=== PATIENT | male | born 1990 | race Hispanic/Latino ===

== ENCOUNTER 2025-01-05 11:36 | Emergency (ER) | payer SELFPAY ==
[~2025-01-05] VITALS: Ht 165.1 cm; Wt 124.7 kg
[2025-01-05] MEDS: ceFAZolin SODIUM 1 GM VIAL IVPB ONE (12:17)
[2025-01-05] MEDS: ketOROlac 15MG/ML VIAL (15MG/ML) IV ONE (12:19)
[2025-01-05] MEDS: teTANUS/diphthERIA TOXOID [ADULT] 0.5 ML VIAL IM ONE (12:20)
[2025-01-05] MEDS: LIDOCAINE HCL 1% 20 ML VIAL INJ ONE (12:21)
--- NOTE | 2025-01-05 12:30 | NUR ---
patient states that he had his left index finger crushed by a ("heavy" approximately 30lbs), barbeque lid, upon assessment, left index finger noted with a laceration to distally, scant bleeding noted. patient pain 8/10
--- NOTE | 2025-01-05 13:24 | NUR ---
Yariel MASCORRO in to suture laceration
--- NOTE | 2025-01-05 13:29 | HMCIMG ---
Exam Type: FINGER(S) 2+VWS LT Clinical Information: laceration to 2nd digit Comparison: None Findings and impression: Open fracture dislocation involving the distal tip of the distal phalanx of the second digit with volar tuft laceration with debris. No other abnormalities
[2025-01-05] MEDS ORDERED: KETO10TA2 PO (13:55)
[2025-01-05] MEDS ORDERED: AMOX1TAB16 PO (13:55)
--- NOTE | 2025-01-05 14:01 | ERN ---
General Chief Complaint: Laceration/Avulsion Stated Complaint: LAC\AVULSION OF LEFT 2ND DIGIT Time Seen by MD: 11:42 Time Seen by Midlevel: 11:42 Source: patient History of Present Illness Initial Comments Patient is a 34-year-old male with a past medical history of diabetes presenting to the emergency department for a laceration to his left 2nd digit. The patient states he was barbecuing when the barbecue accidentally closed on his finger. Allergies: Coded Allergies: No Known Drug Allergies (Unverified Allergy, Unknown, 01/05/25) Past Medical History Past Medical History: No Pertinent History Past Surgical History: None ROS Dictation CONSTITUTIONAL: Negative except for HPI HEAD/FACE: Negative except for HPI EENT: Negative except for HPI RESPIRATORY: Negative except for HPI GASTROINTESTINAL/ABDOMINAL: Negative except for HPI GENITOURINARY: Negative except for HPI MUSCULOSKELETAL: Negative except for HPI INTEGUMENTARY: Negative except for HPI NEUROLOGICAL/PSYCH: Negative except for HPI HEMATOLOGIC/LYMPHATIC: Negative except for HPI All Systems Negative, Except as noted above. 13 point review of systems assessed and all negative except for above. Physical Exam Physical Exam Dictation PHYSICAL EXAM: GENERAL: alert,, awake oriented x 3 HEENT: EOMI, Sclera non icteric, moist mucosa NECK: Supple, no JVD, trachea midline LUNGS: Clear breath sounds bilaterally. No wheezes HEART: Regular rate and rhythm. Normal S1 and S2, without murmurs ABD: Abdomen soft, nontender. Bowel sounds present EXT: No clubbing or cyanosis, SKIN: 2 cm linear laceration to the distal portion of the left 2nd digit, min imal active bleeding NEURO: Alert and oriented to person, follows commands MDM MDM: Differential diagnosis: Laceration, fracture, tendon laceration There are no social concerns with this patient. Prescription drug management Prescriptions will include: Augmentin Medical management and examination interpretation discussions were had by me with other qualified healthcare professionals as indicated for the patient's care. ED Course Orders Procedure Category Date Status Time Cefazolin Sodium 1 Gm PHA 01/05/25 Complete Vial (Ancef 1 Gm V 12:00 Tetanus,Diphtheria PHA 01/05/25 Complete Tox [Adult] (Diphther 12:00 Finger(S) 2+Vws Lt RAD 01/05/25 Resulted 11:58 Ketorolac PHA 01/05/25 Complete Tromethamine 15mg/Ml 12:00 Lidocaine Hcl 1% 20ml PHA 01/05/25 Complete Vial (Lidocaine Hc 12:00 Laceration Tray Set CPOE 01/05/25 Transmitted Up (Er) 11:58 Current Medications Medications (Trade) Dose Ordered Sig/Kofi Route PRN Reason Start Time Stop Time Status Last Admin Dose Admin Cefazolin Sodium (ANCEF 1 gm vial) 1 gm ONCE ONCE IVPB 01/05/25 12:00 01/05/25 12:07 DC 01/05/25 12:17 Ketorolac Tromethamine (toRADol) 15 mg ONCE ONCE IV 01/05/25 12:00 01/05/25 12:07 DC 01/05/25 12:19 Lidocaine HCl (Lidocaine HCl 1% 20ml Vial) ONCE ONCE INJ 01/05/25 12:00 01/05/25 12:07 DC 01/05/25 12:21 Tetanus/ Diphtheria Toxoids Adsorbed (DiphthERIA-teTANUS TOXOID [ADULT]/ DECAVAC) 0.5 ml ONCE ONCE IM 01/05/25 12:00 01/05/25 12:07 DC 01/05/25 12:20 Vital Signs Date Time Temp Pulse Resp B/P (MAP) Pulse Ox O2 Delivery O2 Flow Rate FiO2 01/05/25 13:00 98.1 90 18 134/79 100 Room Air* 0 21 01/05/25 12:00 97.9 64 18 135/80 99 Room Air* 0 21 01/05/25 11:42 98.2 86 16 123/92 0 01/05/25 11:42 98.2 86 16 123/92 96 Room Air* [address] [address] IMAGING REPORT Signed PATIENT: CHRIS GUTIÉRREZ MR#: [id number] : 1990 SEX: M AGE: 34 LOCATION: [facility] ORDER 1200 STATUS: REG ER REPORT#: [id number] SERVICE [id number] REASON: laceration to 2nd digit ORDERING PHYSICIAN: ZANE MARIN PROCEDURE: FINGER LT - FINGER(S) 2+VWS LT Exam Type: FINGER(S) 2+VWS LT Clinical Information: laceration to 2nd digit Comparison: None Findings and impression: Open fracture dislocation involving the distal tip of the distal phalanx of the second digit with volar tuft laceration with debris. No other abnormalities DICTATED BY: MOON GOULD MD DATE: 01/05/251324 ELECTRONICALLY SIGNED BY: MOON GOULD MD DATE: 01/05/251328 Procedure Dictation Procedure Name: Laceration Repair Indication: Reduce risk of infection Location: 2 cm linear laceration to the Palmar aspect of the left 2nd digit Pre-Procedure Diagnosis: Laceration Post-Procedure Diagnosis: Repaired Laceration Informed consent was obtained before procedure started. PROCEDURE: The appropriate timeout was taken. The area was prepped and draped in the usual sterile fashion. Local anesthesia was achieved using 2cc of Lidocaine 1% without epinephrine. The wound was copiously irrigated. 7 5-0 Ethilon simple interrupted sutures were placed. Estimated blood loss was less than 0.5 mL. A dressing was applied to the area and anticipatory guidance, as well as standard post-procedure care, was explained. Return precautions are given. The patient tolerated the procedure well without complications. Follow-up visit set for suture removal and evaluation of the laceration. DX & DISP Disposition: Discharge Departure Impression: Primary Impression: Open fracture of phalanx of digit of hand Condition: Stable Scripts Amoxicillin/Potassium Clav (Amox Tr-K Clv 875-125 mg Tab) 875 Mg-125 Mg Tablet 1 EACH PO BID for 7 Days, #14 TAB 0 Refills Prov: ZANE MARIN 01/05/25 Ketorolac Tromethamine (Ketorolac Tromethamine) 10 Mg Tablet 1 TAB PO TID for pain for 5 Days, #15 TAB 0 Refills Prov: ZANE MARIN 01/05/25 Additional Instructions: Your laceration was successfully repaired with seven sutures. These will need to be removed in 10 days. I have given you a prescription for Augmentin which should help prevent an infection. Your x-ray does reveal a small fracture of the distal aspect of the left 2nd digit. You will need to see an garnishment specialist for further evaluation. Referrals: SELF,REFERRAL (PCP) Time of Disposition: 13:54 I have reviewed the case, and I agree with, Diagnosis and Plan I performed the substantive portion of the visit. I have reviewed and personally made and approve the management plan that is documented in the note by myself or the ASHWINI. I acknowledge for responsibility for the patient's management plan. ZANE MARIN January 05, 2025 14:01
--- NOTE | 2025-01-05 14:28 | NUR ---
patient wound was cleaned with wound cleanser and dressed, and splint was applied to left index finger, paitent tolerated well. patient was given wound care instructions, including signs and symptoms of infection to include pain unresolved with medication, foul odor to wound or foul purulent drainage, discoloration to wound, fever or any other unusual symptoms, return to ER. patient dago inst to have sutures removed in 10 days at primary MD or return to ER, paitent and spouse verbalized instructions given
[2025-01-05 14:45] VITALS: BP 136/76; PULSE 80; RESP 18; TEMP 97.8; O2SAT 100
== END 2025-01-05 14:47 | disposition home or self-care (01) ==
LOC: EDH 11:36
DX: S62.631B Displaced fracture of distal phalanx of left index finger, initial encounter for open fracture (principal); E11.9 Type 2 diabetes mellitus without complications; W22.8XXA Striking against or struck by other objects, initial encounter; Y93.89 Activity, other specified; Y92.89 Other specified places as the place of occurrence of the external cause; Y99.8 Other external cause status
CPT/HCPCS: 99285; 96365; 96375; 90714; 73140; 90471; 12001; J1885; J0690; 96372